=== PATIENT | male | born 1930 | race Caucasian/White ===

== ENCOUNTER 2016-10-11 20:56 | Emergency (ER) | payer MEDICARE ==
[~2016-10-11] VITALS: Ht 170.2 cm; Wt 56.7 kg
[2016-10-11 21:15] VITALS: BP 133/58
--- NOTE | 2016-10-11 21:16 | Emergency Room Report ---
History of Present Illness General Chief Complaint: Dyspnea/Respdistress Source: Patient, Family Member Present Illness HPI Is an 86-year-old male with multiple medical problems. 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 He was at [facility] and was just discharged to a rehabilitation center. There he developed acute onset of shortness of breath. He was sent here for evaluation. He said he felt better now. Denies any fever chills, denies any nausea vomiting. No cough or congestion. No urinary complaint. No focal deficit. Allergies: Coded Allergies: PENICILLINS (Verified Allergy, Unknown, 10/11/16) Patient History Past Medical History: see triage record, old chart reviewed, CAD, AFib, CVA/TIA Past Surgical History: pacemaker, other Pertinent Family History: none Social History: Denies: smoking Immunizations: other Reviewed Nursing Documentation: PMH: Agreed, PSxH: Agreed Nursing Documentation-PMH Hx Cerebrovascular Accident: Yes Review of Systems Eye: Denies: blurred vision, eye pain ENT: Denies: ear pain, nose congestion, throat swelling Respiratory: Reports: shortness of breath, Denies: cough Cardiovascular: Reports: other - Chest pressure, Denies: chest pain, palpitations Gastrointestinal: Denies: abdominal pain, diarrhea, nausea, vomiting Musculoskeletal: Denies: back pain, joint pain Skin: Denies: rash Neurological: Denies: headache, numbness Endocrine: Denies: increased thirst, increased urine Hematologic/Lymphatic: Denies: easy bruising All Other Systems: negative except mentioned in HPI Physical Exam Vital Signs Date Time Temp Pulse Resp B/P Pulse Ox O2 Delivery O2 Flow Rate FiO2 10/11/16 21:08 98.2 66 18 85/54 100 Room Air vitals with hypotension Sp02 EP Interpretation: reviewed, normal General Appearance: well appearing, no apparent distress, alert Head: normocephalic, other - Face with resolving periorbital ecchymosis and contusion to the nose. Eyes: bilateral eye EOMI, bilateral eye PERRL ENT: hearing grossly normal, normal pharynx Neck: full range of motion, supple, no meningismus Respiratory: chest non-tender, lungs clear, normal breath sounds Cardiovascular #1: regular rate, rhythm, no murmur Gastrointestinal: normal bowel sounds, non tender, no mass, no organomegaly, no bruit, non-distended Musculoskeletal: back normal, normal range of motion, swelling - Swelling and ecchymosis to the left hand. This is from trauma couple weeks ago. Psychiatric: mood/affect normal Skin: warm/dry Medical Decision Making Diagnostic Impression: Primary Impression: Dyspnea Qualified Codes: R06.00 - Dyspnea, unspecified Additional Impressions: UTI (urinary tract infection) Qualified Codes: N30.00 - Acute cystitis without hematuria Anemia Qualified Codes: D64.9 - Anemia, unspecified Proteinuria Qualified Codes: R80.9 - Proteinuria, unspecified ER Course Patient presents with signs weakness and dyspnea. He fell better now. Blood pressure normalized. Because of his age and medical disease, I recommended admission. He and his family is adamant about going back to the rehabilitation place. We'll discharge home. Lab Results Impression labs unremarkable EKG Diagnostic Results Rate: normal Rhythm: NSR ST Segments: other - baseline tremors Rhythm Strip Diag. Results EP Interpretation: yes Rate: 69 Rhythm: NSR, no PVC's, no ectopy Chest X-Ray Diagnostic Results EP Interpretation: Yes Findings: no consolidation, no effusion, no pneumothorax, no acute cardiopulmonary disease, other - Pacemaker Number of Views: 1 Last Vital Signs Date Time Temp Pulse Resp B/P Pulse Ox O2 Delivery O2 Flow Rate FiO2 10/11/16 21:08 98.2 66 18 85/54 100 Room Air Status: improved Disposition: XFER SNF Condition: Stable Scripts Cephalexin* (KEFLEX*) 500 Mg Capsule 500 MG ORAL TID, #21 CAP 0 Refills Prov: SHORTY ISIDRO M.D. 10/11/16 Patient Instructions: Shortness of Breath, [id number] Additional Instructions: Followup with your DrJulia in 2-3 days. Return if symptom worsen. SHORTY ISIDRO M.D. Oct 11, 2016 21:16
[2016-10-11 21:42] LABS: MEAN CORPUSCULAR HEMOGLOBIN 28.9 PG (27.0-31.0); MEAN CORPUSCULAR HGB CONC 31.6 G/DL (32.0-36.0); MEAN CORPUSCULAR VOLUME 92 FL (80-99); MEAN PLATELET VOLUME 8.1 FL (6.5-10.1); PLATELET COUNT 323 K/UL (150-450); RED BLOOD COUNT 3.12 M/UL (4.70-6.10); RED CELL DISTRIBUTION WIDTH 15.8 % (11.6-14.8); WHITE BLOOD COUNT 11.3 K/UL (4.8-10.8)
[2016-10-11 21:56] LABS: INR 1.1 (0.9-1.1)
[2016-10-11 22:03] LABS: ALANINE AMINOTRANSFERASE 26 U/L (3-41); ALBUMIN/GLOBULIN RATIO 1.2 (1.0-2.7); ASPARTATE AMINO TRANSFERASE 30 U/L (5-40); CALCIUM 8.6 mg/dL (8.6-10.2); CARBON DIOXIDE 27 mEQ/L (20-30); CREATININE 0.9 mg/dL (0.7-1.2); HEMOLYSIS 2; LYMPHOCYTES % (MANUAL) 8 % (20-45); NEUTROPHILS % (MANUAL) 85 % (45-75); TOTAL CELLS COUNTED 100; TOTAL PROTEIN 5.9 g/dL (6.6-8.7)
[2016-10-11 22:04] LABS: ANION GAP 11 (5-15); ANISOCYTOSIS 1+; BAND NEUTROPHILS % (MANUAL) 0 % (0-8); BASOPHILS % (MANUAL) 0 % (0-2); CHLORIDE 101 mEQ/L (98-107); EOSINOPHILS % (MANUAL) 1 % (0-3); PLATELET ESTIMATE ADEQUATE; PLATELET MORPHOLOGY NORMAL; POTASSIUM 4.2 mEQ/L (3.4-4.9); SODIUM 139 mEQ/L (135-145)
[2016-10-11 22:05] LABS: HYPOCHROMASIA 1+
[2016-10-11 22:14] LABS: CKMB 4.1 ng/mL (< 6.7)
[2016-10-11 22:19] LABS: TROPONIN I < 0.30 ng/mL (<=0.30)
[2016-10-11] MEDS ORDERED: ACETAMINOPHEN325 M1 ORAL (22:59)
[2016-10-11] MEDS ORDERED: ELIQUIS2.5 MG PO (22:59)
[2016-10-11] MEDS ORDERED: ASPIRIN EC81 MG ORAL (22:59)
[2016-10-11] MEDS ORDERED: ATORVASTATIN CA80 MG ORAL (22:59)
[2016-10-11] MEDS ORDERED: ASCORBIC ACID500 MG ORAL (22:59)
[2016-10-11 23:00] LABS: KETONES,URINE NEGATIVE (NEGATIVE); LEUKOCYTE ESTERASE ,URINE 3+ (NEGATIVE); NITRITE,URINE NEGATIVE (NEGATIVE); PH,URINE 6 (4.5-8.0); PROTEIN,URINE 2+ (NEGATIVE); UROBILINOGEN,URINE 4 MG/DL (0.0-1.0)
[2016-10-11 23:10] VITALS: BP 130/60
[2016-10-11 23:23] LABS: APPEARANCE,URINE CLOUDY
[2016-10-11 23:27] LABS: BACTERIA,URINE MANY /HPF; RBC,URINE TNTC /HPF (0 - 0); WBC,URINE TNTC /HPF (0 - 0)
[2016-10-11] MEDS ORDERED: KEFLEX500 MG ORAL (23:35)
[2016-10-11] MEDS ORDERED: cefTRIAXone 1 GM in NS 55 ML IVPB ONE (23:45)
[2016-10-12 00:40] VITALS: BP 126/68
--- NOTE | 2016-10-12 09:26 | Diagnostic Imaging Report ---
Indication: Shortness of breath Technique: Single portable AP view of the chest. Findings: Comparison: None. Left chest wall pacemaker. Mild calcification of aortic arch. Bone cement within what are likely the L1 and L3 vertebral bodies. Bones diffusely demineralized. The remaining extra pulmonary soft tissues, remainder of the cardiomediastinal silhouette, pulmonary vasculature and parenchyma, and pleural surfaces are unremarkable. IMPRESSION: No evidence of acute cardiopulmonary disease Aortosclerosis Pacemaker Osteopenia Previous vertebral augmentation of what are likely the L1 and L3 vertebral bodies
--- NOTE | 2016-10-14 15:54 | Cardiology Report ---
APPROVED REPORT EKG Measurement Heart [id number] Sinus rhythm with 1st degree AV block Nonspecific ST abnormality Abnormal ECG
== END 2016-10-12 00:40 ==
LOC: EDBD 20:56 → EMR 21:29
DX: R06.00 Dyspnea, unspecified (principal); N39.0 Urinary tract infection, site not specified; R53.1 Weakness; R07.89 Other chest pain; W19.XXXA Unspecified fall, initial encounter; S60.222A Contusion of left hand, initial encounter; Y92.89 Other specified places as the place of occurrence of the external cause; Z86.73 Personal history of transient ischemic attack (TIA), and cerebral infarction without residual deficits; Z88.0 Allergy status to penicillin; Z95.0 Presence of cardiac pacemaker
CPT/HCPCS: 36415; 71010; 80053; 81003; 82550; 82553; 83880; 84484; 85007; 85025; 85610; 85730; 87086; 87181; 93005; 96374; 99284; J0696